=== PATIENT | male | born 1960 | race Caucasian/White ===

== ENCOUNTER 2017-05-27 01:21 | Inpatient (IN) | payer OTHER ==
[~2017-05-27] VITALS: Ht 180.3 cm; Wt 98.4 kg
[~2017-05-27 01:21] MED LIST: ASPIRIN EC81 M1 PO; FARXIGA5 M1 PO; GLUCOPHAGE1000 M1 PO; LIPITOR80 M1 PO; METOPROLOL SUCC50 M2 PO; PRINIVIL5 M1 PO; VITAMIN B-121000 MC3 PO
--- NOTE | 2017-05-27 08:28 | Admission Core Measures ---
Acute Coronary Syndrome (CM) ACS Core Measures Acute Coronary Syndrome Diagnosis No Congestive Heart Failure (NEW) CHF Core Measures Congestive Heart Failure Diagnosis No Cerebrovascular Accident (NEW) CVA Core Measures CVA/TIA Diagnosis No Venous Thromboembolism VTE Core Maritza (View Protocol) VTE Risk Factors Surgery No Mechanical VTE Prophylaxis d/t N/A MechProphylax Ordered No VTE Pharm Prophylaxis d/t NA PharmProphylax ordered Problem List As ranked by this Provider includes Assessment & Plan 1. Primary osteoarthritis of left hip HOME MEDS Home Med List Aspirin (Ecotrin*) 81 MG TABLET.DR 1 TAB PO DAILY HEART/BLOOD (Reported) Atorvastatin Calcium (Lipitor) 80 MG TABLET 1 TAB PO QPM CHOLESTEROL ( Reported) Cyanocobalamin (Vitamin B-12) 1,000 MCG TABLET 1.5 TAB PO DAILY SUPPLEMENT ( Reported) Dapagliflozin Propanediol (Farxiga) 5 MG TABLET 1 TAB PO QAM DM (Reported) Lisinopril (Prinivil) 5 MG TABLET 1 TAB PO QAM HEART (Reported) Metformin HCl (Glucophage) 1,000 MG TABLET 1 TAB PO BID DM (Reported) Metoprolol Succinate 50 MG TAB.ER.24H 1 TAB PO DAILY HEART/BP (Reported)
--- NOTE | 2017-05-27 08:38 | Surg Short-stay <48hrs Dis Sum ---
Visit Information Visit Dates Admission Date: 05/27/17 Surgical Short Stay DC Summary Admission Diagnosis: Primary osteoarthritis LEFT HIP Final Diagnosis: same, sp left total hip arthroplasty Procedure(s): left total hip arthroplasty Summary/Significant Findings: Patient was admitted to the hospital for an elective total joint replacement. Procedure was tolerated well and patient was transferred to a general surgical floor. Diet was advanced and tolerated. Physical therapy performed evaluation and treatment. At time of hospital discharge, vital signs were stable, neurovascular status was intact, and pain was controlled with the use of oral pain medications. Condition at Discharge: stable Discharge Disposition: home health services Discharge instructions provided to patient/family: Yes Post discharge follow-up plan: Follow up with Dr. Swift in 6 weeks from date of surgery. Please call his office to schedule/confirm this appointment.
[2017-05-27] MEDS ORDERED: ASPIRIN EC325 M2 PO (10:31)
[2017-05-27] MEDS ORDERED: PROTONIX20 M1 PO (10:31)
[2017-05-27] MEDS ORDERED: MS CONTIN15 M3 PO (10:31)
[2017-05-27] MEDS ORDERED: COLACE100 M1 PO (10:31)
[2017-05-27] MEDS ORDERED: DILAUDID2 M1 PO (10:31)
[2017-05-27] MEDS ORDERED: MIRALAX17 G1 PO (10:31)
--- NOTE | 2017-05-27 10:35 | Patient Discharge Instructions ---
Discharge Instructions General Discharge Information You were seen/treated for: left hip pain You had these procedures: left total hip arthroplasty Watch for these problems: Increasing pain despite the use of pain medication Increasing redness, warmth or swelling Drainage of any type from incision Inability to bear weight on operative leg Persistent nausea and vomiting Fever greater than 101.5 degrees Other wound care: Please keep wound clean and dry. No ointments or lotions of any type on or near incision. Your dressing will be changed by your nurse on the second day after your surgery. Daily dry dressing changes are recommended each day thereafter. Do not soak your wound- no tub baths/swimming. You may shower 48hr after surgery. Special Instructions: Aspirin: You are taking this medication to help prevent blood clot formation. Please take with food to protect your stomach lining. Please take as directed. Constipation: Pain medication can cause constipation. It is recommended that you take Colace and Miralax each day. Discontinue this medication if you develop loose stool or diarrhea. If you wish to continue this medication, it is available over the counter. If you are unable to move your bowels or unable to pass gas and are developing bloating, nausea, or vomiting as a result, please contact your doctor. Protonix (pantoprazole): Take this medication while on high dose aspirin to protect your stomach lining. Diet Recommended Diet: Diabetic Activity Activity Limited to: Weight bear as tolerated Additional ACTIVITY Info: use assistive devices as needed Acute Coronary Syndrome Inclusion Criteria At DC or during hospital stay patient has or had the following: ACS DIAGNOSIS No Discharge Core Measures Meds if any: Prescribed or Continued at Discharge Meds if any: NOT Prescribed or Continued at Discharge Congestive Heart Failure Inclusion Criteria At DC or during hospital stay patient has or had the following: CHF DIAGNOSIS No Discharge Core Measures Meds if any: Prescribed or Continued at Discharge Meds if any: NOT Prescribed or Continued at Discharge Cerebrovascular accident Inclusion Criteria At DC or during hospital stay patient has or had the following: CVA/TIA Diagnosis No Discharge Core Measures Meds if any: Prescribed or Continued at Discharge Meds if any: NOT Prescribed or Continued at Discharge Venous thromboembolism Inclusion Criteria VTE Diagnosis No VTE Type NONE VTE Confirmed by (Test) NONE Discharge Core Measures - Per Current guidelines, there needs to be overlap - treatment for the first 5 days of Warfarin therapy. - If discharged on Warfarin prior to 5 days of - overlap therapy, the patient will need to be - assessed for post discharge needs including - *Post discharge parental anticoagulation - *Warfarin and/or parental anticoagulation education - *Follow up date to check INR post discharge At least 5 days overlap therapy as Inpatient No Meds if any: Prescribed or Continued at Discharge Note: Overlap Therapy is Warfarin and Anticoagulant Meds if any: NOT Prescribed or Continued at Discharge
--- NOTE | 2017-05-27 10:50 | RADIOLOGY REPORT ---
EXAMINATION: XR HIP, LEFT PORTABLE CLINICAL INFORMATION: Status post left total hip arthroplasty. COMPARISON: None TECHNIQUE: Two views of the left hip. FINDINGS: Post surgical changes of left total hip arthroplasty is noted. The hardware is intact. The alignment is anatomic. Expected immediate post surgical changes are noted within the soft tissues. IMPRESSION: Expected post surgical changes of total left hip arthroplasty showing anatomic alignment and intact hardware.
--- NOTE | 2017-05-27 11:54 | PN- Orthopedic ---
Subjective Subjective: Post op check Awake and alert post op No complaints at this time Has not ambulated yet Pain is well controlled Denies nausea Objective Vital Signs and I&Os BP 109/64 RR 16 Sat 97% 2LNC HR 73 Physical Exam: General: alert and oriented times three Chest: clear anteriorly bilaterally, RRR Abd: soft, good bs Ext: warm, no edema, normosensate BLE, no calf tenderness BLE Wd: dressed, dry, ice pack in place Assessment/Plan Assessment/Plan 56yo male s/p L THR pain management ada diet asa 325mg po bid for dvt ppx PT - wbat follow up PT later today for discharge recommendations Core Measures Venous Thromboembolism VTE Risk Factors Surgery No Mechanical VTE Prophylaxis d/t N/A MechProphylax Ordered No VTE Pharm Prophylaxis d/t NA PharmProphylax ordered
[2017-05-27 12:14] VITALS: BP 92/58
[2017-05-27 13:24] VITALS: BP 104/62
[2017-05-27 14:46] VITALS: BP 112/68
--- NOTE | 2017-05-27 14:58 | Operative Report ---
Operative/Inv Procedure Report Surgery Date: 05/27/17 Name of Procedure: Left total hip replacement Pre-Operative Diagnosis: Primary left hip DJD Post-Operative Diagnosis: Same Estimated Blood Loss: 300 Surgeon/Unit Secretary: Jamison CUNNINGHAM,Osvaldo García Anesthesia: block Operative/Procedure Note Note: Description of Procedure: The patient was taken to the operating room and positively identified. After induction of spinal anesthesia and administration of appropriate pre-operative antibiotics, the patient was positioned supine on the operating room table and all bony prominences were well padded. After performing a surgical timeout, the left lower extremity was prepped and draped in the usual sterile fashion. A direct anterior approach was made to the left hip. The incision was carried sharply through superficial soft tissues to the level of the fascia. Meticulous hemostasis was maintained with Bovie electocautery. The fascia over the tensor fascia manohar muscle was opened sharply and the interval between the TFL and the sartorius was entered bluntly taking care to stay lateral to the lateral femoral cutaneous nerve. Retractors were placed around the femoral neck and the pericapsular fat was identified. The ascending branches of the lateral femoral circumflex vessels were identified and carefully coagulated. The pericapsular fat and anterior capsule were then resected. A napkin ring osteotomy was performed and the femoral head was removed without difficulty. Attention was then turned to the acetabulum. After appropriate placement of retractors, the acetabulum was exposed. Soft tissue was cleaned from the acetabular margin and notch. Overhanging osteophytes were removed and the teardrop was exposed. The acetabulum was then sequentially reamed to accept a 60 mm [place] Tritanium hemispherical solid shell. This was impacted into place in the appropriate position and fitted with a 36 mm Trident X3 zero degree polyethylene insert. Attention was then turned to the femur. After performing the appropriate ligament releases, the proximal femur was exposed. It was then sequentially broached to accept a size 6 [place] Accolade 2 stem. This was trialed for leg length and stability. The trial component was removed and the final component was impacted into place. The trunnion was carefully cleaned and fit with a 36 mm, -2.5 Biolox delta ceramic femoral head. The hip was reduced and put through a full range of motion and found to be stable. The articular space was then irrigated with sterile saline. The periarticular soft tissues were infilitrated with Marcaine. The fascial layer was closed with interrupted #1 vicryl suture and the skin was re-approximated with interrupted 2 -0 vicryl. The skin was closed with a running 3-0 V-Lock suture. Steri-strips and a sterile dressing were applied. The patient was awakened and taken to the recovery room in satisfactory condition.
== END 2017-05-27 17:00 | disposition home health service (06) | DRG 470 ==
LOC: SDA 01:21 → ENRESERV 10:12 → ENTRNSPT 11:40 → EDTRNSPTSTS 11:44 → EDTRNSPT 11:44 → 2NB 12:02 → CMPTRNSPT 12:07 → ENTRNSPT 16:42 → 2NB 17:00 → CMPTRNSPT 17:06
PROC: 0SRB04A Replacement of Left Hip Joint with Ceramic on Polyethylene Synthetic Substitute, Uncemented, Open Approach (ICD-10-PCS; principal; 2017-05-27)
DX: M16.12 Unilateral primary osteoarthritis, left hip (principal); I50.20 Unspecified systolic (congestive) heart failure; E11.9 Type 2 diabetes mellitus without complications; M25.752 Osteophyte, left hip; I25.10 Atherosclerotic heart disease of native coronary artery without angina pectoris; Z87.891 Personal history of nicotine dependence
CPT/HCPCS: 2NBP; 73502-LT; 97116-GO; 97161-GP; J0690; J0735; J3490; J7042